=== PATIENT | male | born 1960 | race Caucasian/White ===

== ENCOUNTER 2018-06-20 11:05 | Emergency (ER) | payer OTHER ==
[2018-06-20] MEDS: DIPHTH/TET/ACEL PERTUSS (ADULT) 0.5 ML VIAL IM* (12:07)
[2018-06-20] MEDS: LIDOCAINE 1% (MDV) 20 ML INJ SC (12:47)
== END 2018-06-20 13:48 | disposition home or self-care (01) ==
LOC: FTE 11:05
DX: S91.212A Laceration without foreign body of left great toe with damage to nail, initial encounter (principal); I10 Essential (primary) hypertension; W26.8XXA Contact with other sharp object(s), not elsewhere classified, initial encounter; Y92.9 Unspecified place or not applicable; Z23 Encounter for immunization
CPT/HCPCS: 12002; 73660; 90471; 90715; 99283-25

== ENCOUNTER 2018-06-23 07:46 | Emergency (ER) | payer OTHER | END 2018-06-23 08:14 | disposition home or self-care (01) | LOC: FTE 07:46 | DX: Z48.01 Encounter for change or removal of surgical wound dressing (principal); I10 Essential (primary) hypertension | CPT/HCPCS: 99281; Z7502 ==

== ENCOUNTER 2018-06-30 07:44 | Emergency (ER) | payer OTHER | END 2018-06-30 08:23 | disposition home or self-care (01) | LOC: FTE 07:44 | DX: Z48.01 Encounter for change or removal of surgical wound dressing (principal); I10 Essential (primary) hypertension | CPT/HCPCS: 99281; Z7502 ==

== ENCOUNTER 2018-07-02 07:22 | Emergency (ER) | payer OTHER | END 2018-07-02 08:35 | disposition home or self-care (01) | LOC: FTE 07:22 | DX: Z48.02 Encounter for removal of sutures (principal); F17.210 Nicotine dependence, cigarettes, uncomplicated; I10 Essential (primary) hypertension | CPT/HCPCS: 99281; Z7502 ==